=== PATIENT | female | born 1940 | race Caucasian/White ===

== ENCOUNTER 2020-08-26 11:14 | Inpatient (IN) | payer OTHER ==
[~2020-08-26] VITALS: Ht 152.4 cm; Wt 81.6 kg
[2020-08-26] MEDS ORDERED: CITA10TA17 PO (11:40)
[2020-08-26] MEDS ORDERED: ASPI81TA31 PO (11:40)
[2020-08-26] MEDS ORDERED: LISI10TA5 PO (11:40)
--- NOTE | 2020-08-26 11:52 | NUR ---
PT IS IN ROOM #1B. DR REYES EVALUATED THE PT.
[2020-08-26 12:17] LABS: BASOPHILS % (AUTO) 0.3 % (0.0-2.0); EOSINOPHILS # (AUTO) 0.1 K/uL (0.0-0.7); EOSINOPHILS % (AUTO) 0.5 % (0.0-7.0); HEMATOCRIT 29.8 % (31.2-41.9); HEMOGLOBIN 9.9 g/dL (10.9-14.3); LYMPHOCYTES # (AUTO) 0.8 K/uL (20.0-40.0); LYMPHOCYTES % (AUTO) 7.2 % (20.5-51.5); MEAN CORPUSCULAR HEMOGLOBIN 28.6 uug (24.7-32.8); MEAN CORPUSCULAR HGB CONC 33 g/dL (32.3-35.6); MEAN CORPUSCULAR VOLUME 85.9 fL (75.5-95.3); MONOCYTES # (AUTO) 0.5 K/uL (2.0-10.0); MONOCYTES % (AUTO) 4.3 % (0.0-11.0); NEUTROPHILS # (AUTO) 9.9 K/uL (1.8-8.9); NEUTROPHILS % (AUTO) 87.7 % (38.5-71.5); PLATELET COUNT (AUTO) 400 K/uL (179-408); RED BLOOD CELL COUNT(AUTO) 3.46 MIL/uL (3.63-4.92); WHITE BLOOD COUNT (AUTO) 11.3 K/uL (3.8-11.8)
[2020-08-26 12:32] LABS: ALANINE AMINOTRANSFERASE 25 U/L (14-59); ALKALINE PHOSPHATASE 131 U/L (50-136); ASPARTATE AMINOTRANSFERASE 25 U/L (15-37); BILIRUBIN,DIRECT 0.2 mg/dL (0.0-0.2); BILIRUBIN,TOTAL 0.5 mg/dL (0.2-1.0); CHLORIDE 104 mmol/L (98-107); CREATININE 1.8 mg/dL (0.6-1.3); GLUCOSE 229 mg/dL (74-106); POTASSIUM 3.8 mmol/L (3.5-5.1); TOTAL PROTEIN, SERUM 7.3 g/dL (6.4-8.2)
[2020-08-26 12:37] LABS: CARBON DIOXIDE 28 mmol/L (21-32); UREA NITROGEN, BLOOD 33 mg/dL (7-18)
[2020-08-26 13:25] LABS: *BILIRUBIN,URIN NEGATIVE (NEGATIVE); *BLOOD, URINE 2+ (NEGATIVE); *CLARITY,URINE CLEAR (CLEAR); *COLOR,URINE YELLOW (YELLOW); *KETONES,URINE NEGATIVE (NEGATIVE); *UROBILINOGEN,URINE 0.2 E.U./dl (NORMAL); LEUKOCYTE ESTERASE ,URINE NEGATIVE (NEGATIVE); NITRITE, URINE NEGATIVE (NEGATIVE); PH,URINE 5.5 (5.0-8.0); UGLUCOSE NEGATIVE (NEGATIVE)
--- NOTE | 2020-08-26 13:35 | NUR ---
Dr. Brooks from [facility] called to speak with Dr. Posey
[2020-08-26] MEDS ORDERED: IV NORMAL SALINE 500 ML IV ONE (14:00)
[2020-08-26] MEDS ORDERED: ONDANSETRON 4 MG/2 ML VIAL IV PRN (14:30)
[2020-08-26] MEDS ORDERED: CLOPIDOGREL 75 MG TABLET PO ONE (14:30)
[2020-08-26] MEDS ORDERED: ACETAMINOPHEN 325 MG TABLET PO PRN (14:30)
[2020-08-26] MEDS ORDERED: HYDROCODONE/APAP 5-325MG TABLET PO PRN (14:30)
[2020-08-26] MEDS ORDERED: MAGNESIUM HYDROXIDE 30 ML LIQUID UDC PO PRN (14:30)
[2020-08-26] MEDS ORDERED: ASPIRIN 81 MG TAB.CHEW PO SCH (14:30)
[2020-08-26] MEDS ORDERED: Z GUARD REMEDY PASTE 57 GM TUBE TOP PRN (14:30)
[2020-08-26] MEDS ORDERED: NITROGLYCERIN 0.4 MG/TAB BOTTLE SL PRN (14:30)
--- NOTE | 2020-08-26 14:34 | NUR ---
DR BASILIO LARSON EVALUATED THE PT.
--- NOTE | 2020-08-26 15:39 | NUR ---
DR REYES INFORMED PT's DOUGHTER OVER THE PHONE, THAT PT IS "COVID 19" POSITIVE.
[2020-08-26] MEDS ORDERED: DEXAMETHASONE SOD PHOSPHATE 4 MG INJ IV ONE ×2 (18:41→21:00)
--- NOTE | 2020-08-26 18:57 | NUR ---
REPORT WAS GIVEN TO FILING WRITER RN.
--- NOTE | 2020-08-26 20:00 | NUR ---
Pt. admitted to [facility] (covid) , under care of SYSTEMS REQUIREMENTS PLANNER Angelina Chaves, receiving RN is Amish Shi List completed and all belongings sent
--- NOTE | 2020-08-26 20:00 | NUR ---
PT received from ER Nurse [place]. VSS. Belongings list obtained. Will assess patient and monitor.
[2020-08-26 20:30] VITALS: BP 133/86
--- NOTE | 2020-08-26 21:00 | NUR ---
Pt failed bedside swallow evaluation. Could not swallow 30mL of water without coughing. Messaged Angelina Chaves and was told to hold Aspirin order. Speech Therapy, Wound Consult, Dietary Consult ordered. Will assess and monitor patient.
[2020-08-26] MEDS: ASPIRIN 81 MG TAB.CHEW PO SCH (21:20)
[2020-08-26] MEDS ORDERED: CEFTRIAXONE /D5W 50ML IVPB **ER PYXIS IV ONE (21:36)
[2020-08-26] MEDS: CEFTRIAXONE 1 G in IV DEXTROSE 5% 50 ML IV SCH (21:41)
[2020-08-26] MEDS: IV NS 1000 ML 1,000 ML IV PRN (21:49)
--- NOTE | 2020-08-26 23:00 | NUR ---
Pt asleep in bed, but easily awoken to arousal. NO signs of pain or distress. VSS. Bed at lowest position, call light within reach, IV patent, patient comfortable. Will continue to monitor and assess.
[2020-08-26 23:15] LABS: BACTERIA,URINE NONE SEEN /HPF (NONE SEEN); SQUAMOUS EPITHELIAL CELL,UR FEW /HPF (NONE SEEN); WBC,URINE 0-3 /HPF (0-3)
--- NOTE | 2020-08-27 | NUR ---
Pt sleeping comfortably and wakes to name. No signs of pain, no distress, VSS, bed at lowest position, call light within reach, bed alarm on, IV infusing 60cc/hr of NS, NC running at 3L O2. Will continue to monitor and assess.
[2020-08-27 00:05] VITALS: BP 125/68
--- NOTE | 2020-08-27 02:30 | NUR ---
Pt assessed and is resting in bed. She awakens easily when called or touched. VSS. Bed at lowest position, O2 running via NC at 3L, IV fluids infusing at 60cc/hr NS, HOB elevated, no SOB, call light within reach. Will continue to assess and monitor.
[2020-08-27 04:00] VITALS: BP 127/59
--- NOTE | 2020-08-27 04:10 | NUR ---
Upon rounding, patient was asleep but awoke easily. VSS. O2 at 3L via NC. IV fluids 60cc/hr. Bed at lowest position, call light within reach, bed alarm on, HOB elevated, afebrile, no SOB. Will continue to assess and monitor.
--- NOTE | 2020-08-27 06:16 | NUR ---
Upon assessment, patient was sleeping with VSS. No signs of pain unless patient is being moved around the bed. NS running at 60cc/hr, O2 running at 3L via NC, bed at lowest position, call light within reach, IVs patent, patient kept clean and dry. Will endorse to oncoming nurse.
[2020-08-27 06:57] LABS: BASOPHILS % (AUTO) 0.3 % (0.0-2.0); EOSINOPHILS % (AUTO) 0.1 % (0.0-7.0); HEMATOCRIT 26.1 % (31.2-41.9); LYMPHOCYTES # (AUTO) 0.5 K/uL (20.0-40.0); LYMPHOCYTES % (AUTO) 9.2 % (20.5-51.5); MEAN CORPUSCULAR HEMOGLOBIN 29.3 uug (24.7-32.8); MEAN CORPUSCULAR HGB CONC 34 g/dL (32.3-35.6); MEAN CORPUSCULAR VOLUME 85.4 fL (75.5-95.3); MONOCYTES # (AUTO) 0.1 K/uL (2.0-10.0); MONOCYTES % (AUTO) 2.4 % (0.0-11.0); PLATELET COUNT (AUTO) 298 K/uL (179-408); RED BLOOD CELL COUNT(AUTO) 3.06 MIL/uL (3.63-4.92); WHITE BLOOD COUNT (AUTO) 5.7 K/uL (3.8-11.8)
[2020-08-27 07:44] LABS: ALANINE AMINOTRANSFERASE 23 U/L (14-59); ALKALINE PHOSPHATASE 108 U/L (50-136); ASPARTATE AMINOTRANSFERASE 25 U/L (15-37); BILIRUBIN,TOTAL 0.2 mg/dL (0.2-1.0); CARBON DIOXIDE 28 mmol/L (21-32); CHLORIDE 107 mmol/L (98-107); CHOLESTEROL 147 mg/dL (<200); CREATININE 1.5 mg/dL (0.6-1.3); FERRITIN 176 ng/mL (8-252); GLUCOSE 162 mg/dL (74-106); HDL CHOLESTEROL 65 mg/dL (40-60); LACTATE DEHYDROGENASE 201 U/L (81-234); MAGNESIUM 1.9 mg/dL (1.8-2.4); PHOSPHOROUS 4.1 mg/dL (2.5-4.9); TOTAL PROTEIN, SERUM 6.3 g/dL (6.4-8.2); TRIGLYCERIDES 57 MG/DL (30-150); UREA NITROGEN, BLOOD 32 mg/dL (7-18)
[2020-08-27] MEDS ORDERED: REMDESIVIR (INVESTIGATIONAL) 200 MG in IV NORMAL SALINE 210 ML IV ONE (08:15)
--- NOTE | 2020-08-27 08:30 | NUR ---
Pt more awake. PT was able to take pills crushed with apple sauce. No sob noted. Fall precaution implemented. DTI on sacral area noted and foam dressing changed. Awaiting wound care nurse to [facility] pt. Ordered [facility] bed
[2020-08-27] MEDS: PANTOPRAZOLE SODIUM 40 MG VIAL IV SCH (08:46)
[2020-08-27] MEDS: ASPIRIN 81 MG TAB.CHEW PO SCH (08:47)
[2020-08-27] MEDS: LEVOTHYROXINE SODIUM 100 MCG TABLET PO SCH (08:47)
[2020-08-27] MEDS: LISINOPRIL 10 MG TABLET PO SCH (08:50)
[2020-08-27 08:52] VITALS: BP 137/70
[2020-08-27] MEDS: DEXAMETHASONE 4 MG TABLET PO SCH (08:55)
[2020-08-27] MEDS ORDERED: ENOXAPARIN SODIUM 30 MG/0.3 ML DISP.SYRIN SQ SCH (09:00)
[2020-08-27 11:32] VITALS: BP 138/66
[2020-08-27 13:01] LABS: THYROID STIMULATING HORMONE 5.511 mIU/mL (0.358-3.740)
[2020-08-27] MEDS ORDERED: ENOXAPARIN SODIUM 60 MG/0.6 ML DISP.SYRIN SQ ONE (13:30)
[2020-08-27] MEDS: IV NS 1000 ML 1,000 ML IV PRN (13:55)
[2020-08-27 16:00] VITALS: BP 139/58
--- NOTE | 2020-08-27 18:24 | NUR ---
Pt passed swallow eval earlier with ST. Attempted to feed pt with ccho 60gm mech soft. Pt has poor appetite. No coughing noted. I bed installed in bed.
[2020-08-27 20:27] VITALS: BP 134/59
[2020-08-27] MEDS: CEFTRIAXONE 1 G in IV DEXTROSE 5% 50 ML IV SCH (20:43)
[2020-08-28] VITALS: BP 160/78
[2020-08-28 04:00] VITALS: BP 142/59
--- NOTE | 2020-08-28 05:13 | NUR ---
PATIENT ALERT BUT FORGETFUL, NO SOB NO CHEST PAIN, TELE MONITOR SINUS RHYTHM SINUS NEELA BUT NOT SUSTAINABLE, NOTED PATIENT HAS NO URINE OUTPUT, ABDOMEN HARD TO TOUCH, AND NOTED SOME DISCOMFORT WHEN ABDOMEN WAS TOUCH. NOTIFY MISAEL JAVED WITH ORDER TO INSERT HO CATH FOR BLADDER RETENTION. CONT TO MONITOR.
--- NOTE | 2020-08-28 06:47 | NUR ---
PATIENT AWAKE, NO SOB NO CHEST PAIN, PATIENT WITH EPISODE OF SINUS BRADYCARDIA OF 38 BUT UNSUSTAINABLE, SHE GOES BACK UP TO 65 TO 70, HO CATH DRAINING WITH YELLOW COLOR URINE IN MODERATE AMOUNT, CONT TO MONITOR.
--- NOTE | 2020-08-28 06:50 | NUR ---
WOUND CARE CONSULT (LATE ENTRY): PT'S CHART, NURSING DOCUMENTATION AND PHOTOS WERE REVIEWED BY [facility] ON 08/27/20 AND WERE NOTED TO INDICATE DEEP TISSUE INJURY TO SACRUM WITH SURROUNDING SCARRING. DISCUSSED SKIN PROTECTION WITH NURSING STAFF. FIRST STEP LOW AIRLOSS MATTRESS WAS ORDERED. MD IN AGREEMENT WITH PLAN OF CARE.
[2020-08-28 07:59] LABS: BASOPHILS % (AUTO) 0.4 % (0.0-2.0); EOSINOPHILS # (AUTO) 0.2 K/uL (0.0-0.7); EOSINOPHILS % (AUTO) 2.5 % (0.0-7.0); HEMATOCRIT 27.6 % (31.2-41.9); HEMOGLOBIN 9.4 g/dL (10.9-14.3); LYMPHOCYTES # (AUTO) 1.7 K/uL (20.0-40.0); LYMPHOCYTES % (AUTO) 20.1 % (20.5-51.5); MEAN CORPUSCULAR HGB CONC 34 g/dL (32.3-35.6); MEAN CORPUSCULAR VOLUME 85.7 fL (75.5-95.3); MONOCYTES # (AUTO) 0.7 K/uL (2.0-10.0); MONOCYTES % (AUTO) 7.9 % (0.0-11.0); NEUTROPHILS # (AUTO) 5.7 K/uL (1.8-8.9); NEUTROPHILS % (AUTO) 69.1 % (38.5-71.5); PLATELET COUNT (AUTO) 321 K/uL (179-408); RED BLOOD CELL COUNT(AUTO) 3.22 MIL/uL (3.63-4.92); WHITE BLOOD COUNT (AUTO) 8.3 K/uL (3.8-11.8)
[2020-08-28 08:01] LABS: CREATINE KINASE, TOTAL 64 U/L (26-192)
[2020-08-28] MEDS ORDERED: REMDESIVIR (INVESTIGATIONAL) 100 MG in IV NORMAL SALINE 230 ML IV SCH (08:15)
[2020-08-28 08:26] LABS: ALANINE AMINOTRANSFERASE 23 U/L (14-59); ALKALINE PHOSPHATASE 101 U/L (50-136); ASPARTATE AMINOTRANSFERASE 26 U/L (15-37); BILIRUBIN,TOTAL 0.2 mg/dL (0.2-1.0); CARBON DIOXIDE 28 mmol/L (21-32); CHLORIDE 109 mmol/L (98-107); CREATININE 1.4 mg/dL (0.6-1.3); FERRITIN 152 ng/mL (8-252); GLUCOSE 121 mg/dL (74-106); LACTATE DEHYDROGENASE 226 U/L (81-234); PHOSPHOROUS 2.1 mg/dL (2.5-4.9); POTASSIUM 3.5 mmol/L (3.5-5.1); TOTAL PROTEIN, SERUM 6.3 g/dL (6.4-8.2); UREA NITROGEN, BLOOD 30 mg/dL (7-18)
[2020-08-28] MEDS: LISINOPRIL 10 MG TABLET PO SCH ×2 (09:00→09:38)
[2020-08-28] MEDS ORDERED: ENOXAPARIN SODIUM 80 MG/0.8 ML DISP.SYRIN SQ SCH (09:00)
[2020-08-28] MEDS: ASPIRIN 81 MG TAB.CHEW PO SCH ×2 (09:00→09:38)
[2020-08-28] MEDS: DEXAMETHASONE 4 MG TABLET PO SCH ×2 (09:00→09:41)
[2020-08-28] MEDS: PANTOPRAZOLE SODIUM 40 MG VIAL IV SCH (09:38)
[2020-08-28] MEDS: LEVOTHYROXINE SODIUM 100 MCG TABLET PO SCH (09:39)
[2020-08-28] MEDS ORDERED: POTASSIUM PHOSPHATE MM 7.5 MMOL in IV NORMAL SALINE 97.5 ML IV ONE (11:30)
--- NOTE | 2020-08-28 11:30 | NUR ---
patient's daughter TORRI called with upset mood, with multiple questions, nurse tried to answer appropriate question, daughter requested to talk to charge nurse, charge nurse spoke to daughter. patient is noncompliant with care, and meds, hitting and fighting during care, refused meds and breakfast, will continue to monitor Addendum: 08/28/20 at 1220 by ANDREINA CALVILLO RN, RN Tried different ways to give patient oral medication, unsuccessful. will continue to monitor Addendum: 08/28/20 at 1221 by ANDREINA CALVILLO RN RN patient removes her supplemental oxygen nasal canula as well, however no acute distress noted. continue to reinforce, continue to monitor
[2020-08-28 13:50] VITALS: BP 160/66
[2020-08-28 15:17] LABS: ABG BASE EXCESS 3.3 mmol/L; ABG HCO3 26.7 mmol/L; ABG PH 7.488 (7.350-7.450); ABG PO2 57.8 mmHg (75.0-100.0); ABG SITE LEFT RADIAL; ABG TOTAL HEMOGLOBIN 9.7 G/dL (12.0-16.0); COHb 0.2 % (0.5-1.5); O2Hb 90.7 % (94.0-97.0); VENT MODE Nasal Cannula
[2020-08-28] MEDS ORDERED: ACET325T53 PO (15:54)
[2020-08-28] MEDS ORDERED: DEXA4TAB2 PO (15:54)
[2020-08-28] MEDS ORDERED: CEFT1VIA15 IV (15:54)
[2020-08-28] MEDS ORDERED: Nitroglycerin Sl SL (15:55)
[2020-08-28] MEDS ORDERED: ENOX80DI SQ (15:55)
[2020-08-28] MEDS ORDERED: PANT40TA2 PO (15:55)
[2020-08-28] MEDS ORDERED: REMD100V IV (15:55)
[2020-08-28] MEDS ORDERED: HYDR-894 PO (15:55)
[2020-08-28] MEDS ORDERED: HYDR-3972 PO (15:55)
[2020-08-28] MEDS ORDERED: ONDA4VIA23 IV (15:55)
[2020-08-28] MEDS ORDERED: MAGN400O6 PO (15:55)
[2020-08-28 16:00] VITALS: BP 168/82
[2020-08-28] MEDS ORDERED: hydrALAZINE HCL 25 MG TABLET PO PRN (16:00)
[2020-08-28] MEDS ORDERED: METF-440 PO (16:01)
[2020-08-28] MEDS ORDERED: LISINOPRIL 10 MG TABLET PO ONE (17:00)
[2020-08-28] MEDS: CEFTRIAXONE 1 G in IV DEXTROSE 5% 50 ML IV SCH (18:01)
[2020-08-28 18:05] VITALS: BP 168/85
--- NOTE | 2020-08-28 18:51 | NUR ---
patient is noncompliant with care at times, however was able to give blood pressure medication orally, patient is going to transfer to the [facility], patient was hitting staff during cleaning, refused the pictures to be taken at discharge, however no new skin issues noted at this time, will endorse accordingly.
--- NOTE | 2020-08-28 20:30 | NUR ---
Patient was picked up by [facility] ambulance. Stable On room air, no distress. Receiving facility was given a report prior. Property was picked up by the EMS staff also.
[2020-08-28 20:31] VITALS: BP 153/73
[2020-08-29] MEDS ORDERED: PANTOPRAZOLE SODIUM 40 MG TABLET.DR PO SCH (07:00)
[2020-08-29] MEDS ORDERED: ENOXAPARIN SODIUM 30 MG/0.3 ML DISP.SYRIN SQ SCH (09:00)
[2020-08-29 12:08] LABS: A/G RATIO 0.8 (0.7-1.7); ALBUMIN 2.5 g/dL (2.9-4.4); ALPHA-1-GLOBULIN 0.3 g/dL (0.0-0.4); ALPHA-2-GLOBULIN 0.9 g/dL (0.4-1.0); GLOBULIN, TOTAL 3.1 g/dL (2.2-3.9); M-SPIKE Not Observed g/dL (Not Observed)
== END 2020-08-28 21:20 | disposition short-term general hospital (02) | DRG 871 ==
LOC: ER 11:14 → TELE-TD3 18:32 → TELE3 08-27 16:35
PROVIDERS: ADMIT Nurse Practitioner Acute Care; ATTEND Internal Medicine
DX: A41.89 Other specified sepsis (principal); U07.1 COVID-19; J96.01 Acute respiratory failure with hypoxia; I21.A1 Myocardial infarction type 2; G93.41 Metabolic encephalopathy; E43 Unspecified severe protein-calorie malnutrition; N17.0 Acute kidney failure with tubular necrosis; J12.89 Other viral pneumonia; I26.99 Other pulmonary embolism without acute cor pulmonale; E87.2 Acidosis; D64.9 Anemia, unspecified; E03.9 Hypothyroidism, unspecified; E86.0 Dehydration; M19.90 Unspecified osteoarthritis, unspecified site; M81.0 Age-related osteoporosis without current pathological fracture; F03.90 Unspecified dementia, unspecified severity, without behavioral disturbance, psychotic disturbance, mood disturbance, and anxiety; E11.9 Type 2 diabetes mellitus without complications; R31.29 Other microscopic hematuria; Z68.35 Body mass index [BMI] 35.0-35.9, adult; R13.10 Dysphagia, unspecified; N18.9 Chronic kidney disease, unspecified; I12.9 Hypertensive chronic kidney disease with stage 1 through stage 4 chronic kidney disease, or unspecified chronic kidney disease; I25.10 Atherosclerotic heart disease of native coronary artery without angina pectoris; F32.9 Major depressive disorder, single episode, unspecified; E66.9 Obesity, unspecified; Z96.649 Presence of unspecified artificial hip joint
CPT/HCPCS: 36415; 36600; 70030-TC; 70450; 71045; 83605; 83615; 83735; 83970; 84100; 84155; 84165; 84443; 85025; 85730; 86140; 86850; 86900; 86901; 87040; 87086; 93005; C9113; G0378; J0696; J1100; J1650; J3490; J7060; J8540; U0003